=== PATIENT | male | born 1975 | race Caucasian/White ===

== ENCOUNTER 2017-08-01 14:51 | Emergency (ER) | payer OTHER ==
[~2017-08-01] VITALS: Wt 80.2 kg
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
[2017-08-01] MEDS ORDERED: IBUPROFEN 800 MG TAB PO ONE (18:00)
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
[2017-08-01] MEDS ORDERED: IBUP800T25 PO (20:56)
== END 2017-08-01 21:06 | disposition home or self-care (01) ==
LOC: FTE 14:51
DX: S00.83XA Contusion of other part of head, initial encounter (principal); W50.1XXA Accidental kick by another person, initial encounter; Y92.9 Unspecified place or not applicable
CPT/HCPCS: 70110; 70486; Z7610